=== PATIENT | male | born 1930 | race Caucasian/White ===

== ENCOUNTER 2017-11-12 17:15 | Inpatient (IN) | payer MEDICARE, OTHER, MEDICAID ==
[2017-11-12] MEDS ORDERED: Pantoprazole 40 MG Vial ONE ×2 (17:19→17:20)
[2017-11-12] MEDS ORDERED: Ondansetron 4 MG/2 ML SDV ONE ×2 (17:20→17:30)
[2017-11-12] MEDS ORDERED: LORazepam 2 MG/ML SDV ONE ×2 (17:20→17:29)
[2017-11-12] MEDS ORDERED: Morphine 2 MG/ML Syringe ONE ×2 (17:20→17:39)
[2017-11-12] MEDS ORDERED: Sodium Chloride 0.9% 1,000 ML IV SCH (17:21)
[2017-11-12] MEDS ORDERED: Sodium Chloride 0.9% 1,000 ML IV ONE (17:21)
[2017-11-12] MEDS ORDERED: Labetalol 20 MG/4 ML Syringe IVPUSH ONE (17:25)
[2017-11-12 17:47] LABS: CHLORIDE,CL 99 mmol/L (98-107); SODIUM,NA 136 mmol/L (136-145)
--- NOTE | 2017-11-12 18:28 | EDM.PDOC ---
ED HPI GENERAL MEDICAL PROBLEM - General Chief Complaint: Respiratory Problem Stated Complaint: hypoxia, unresponsive- resp distress Time Seen by Provider: 11/12/17 17:22 Source of Information: Reports: Other ([facility] staff) History Limitations: Reports: Altered Mental Status (dementia) - History of Present Illness INITIAL COMMENTS - FREE TEXT/NARRATIVE: Patient brought here by EMS from [facility] after having sudden onset respiratory distress and low grade temp. Staff there said that only an hour before patient appeared to be normal self. Reported observations from staff included tachycardia, tachypnea, wheezing, shaking, cyanotic lips. Sats in 80s. Did drop at one point to 67%. Os 4LNC started. Later was on non-rebreather mask during transport. Blood sugar 276 on site. History of dementia, anemia, GERD, DM, CVA, prostate cancer, osteoarthritis, depression, arthritis, hypothyroidism - Related Data Allergies Allergy/AdvReac Type Severity Reaction Status Date / Time atorvastatin calcium Allergy Unknown Verified 03/24/14 08:33 [From Lipitor] enalapril Allergy Unknown Verified 03/24/14 08:33 Penicillins Allergy Unknown Verified 03/24/14 08:33 simvastatin [From Zocor] Allergy Unknown Verified 03/24/14 08:33 Home Meds: Home Meds Acetaminophen [Tylenol] 325 mg PO BID PRN 03/24/14 [History] Calcium Polycarbophil [Fibercon] 625 mg PO DAILY 03/24/14 [History] Citalopram Hydrobromide [Celexa] 10 mg PO DAILY 03/24/14 [History] Donepezil HCl [Aricept] 10 mg PO DAILY 03/24/14 [History] Insulin Glarg,Human.Rec.Analog [LantUS] 14 unit SUBCUT BEDTIME 03/24/14 [History ] Levothyroxine 25 mcg PO DAILY@1900 03/24/14 [History] Omeprazole [Prilosec] 20 mg PO DAILY 03/24/14 [History] glipiZIDE [Glipizide ER] 10 mg PO BID 03/24/14 [History] metFORMIN [metFORMIN XR] 500 mg PO BEDTIME 03/24/14 [History] Aspirin [Ecotrin] 325 mg PO DAILY 11/12/17 [History] Camphor/Menthol [Sarna Lotion] 1 applic TP QID PRN 11/12/17 [History] Insulin Aspart [Novolog] 12 unit SQ 08,18 11/12/17 [History] Insulin Aspart [Novolog] 16 unit SQ 12 11/12/17 [History] Memantine HCl [Namenda Xr] 14 mg PO BEDTIME 11/12/17 [History] Psyllium Husk [Metamucil] 0.4 gm PO DAILY 11/12/17 [History] Past Medical History Gastrointestinal History: Reports: GERD Genitourinary History: Reports: Prostate Disorder Musculoskeletal History: Reports: Osteoarthritis Neurological History: Reports: CVA Psychiatric History: Reports: Dementia, Depression Endocrine/Metabolic History: Reports: Diabetes, Type II, Hypothyroidism Hematologic History: Reports: Anemia Oncologic (Cancer) History: Reports: Prostate Social & Family History - Family History Family Medical History: Unobtainable - Living Situation & Occupation Living situation: Reports: , with Family, Extended Care Facility Occupation: Retired ED ROS GENERAL - Review of Systems Review Of Systems: Unable To Obtain ED EXAM, GENERAL - Physical Exam Exam: See Below Exam Limited By: Respiratory Distress General Appearance: Lethargic, Severe Distress, Obese Eye Exam: Bilateral Eye: EOMI, PERRL Ears: Normal External Exam, Normal Canal, Hearing Grossly Normal, Normal TMs Nose: No: Nasal Deformity, Nasal Swelling, Nasal Drainage Throat/Mouth: Normal Voice, Other (very poor dentition noted. ) Head: Atraumatic, Normocephalic Neck: Supple, Non-Tender, Full Range of Motion Respiratory/Chest: Respiratory Distress, Decreased Breath Sounds, Wheezing (all villeda), Accessory Muscle Use. No: Stridor, Retractions Cardiovascular: No Murmur, Tachycardia Peripheral Pulses: 2+: Radial (L), Radial (R), Dorsalis Pedis (L), Dorsalis Pedis (R) GI/Abdominal: Non-Tender, Abnormal Bowel Sounds (decreased), Other (very rounded , obese abdomen). No: Guarding, Rebound, Tender (Male) Exam: Rash (fungal like rash noted in groin region). No: Penile Lesions, Suprapubic Fullness Rectal (Males) Exam: Deferred Back Exam: Normal Inspection Extremities: Pedal Edema (mild, bilateral). No: Joint Swelling, Maggie's Sign, Leg Pain, Mottled, Pallor, Redness Neurological: Other (spontaneously opened eyes, opened eyes to voices. Appears to have equal tone/strength. Could not test reflexes as patient would not relax. Moves all 4 limbs) Psychiatric: Normal Affect Skin Exam: Other (groin rash noted. Increased overall warmth/fever. ). No: Decubitus, Diaphoretic Course - Orders/Labs/Meds Orders: Active Orders 24 hr Category Date Time Status Insert Tellez Catheter [Insert Urinary Catheter] [OM.PC] Care 11/12/17 18:15 Ordered Q24H Urinary Catheter Assessment [RC] ASDIRECTED Care 11/12/17 18:09 Active Chest 1V Frontal [CR] Stat Exams 11/12/17 17:25 Ordered CULTURE BLOOD [BC] Stat Lab 11/12/17 17:25 Ordered CULTURE BLOOD [BC] Stat Lab 11/12/17 17:25 Ordered UA W/MICROSCOPIC [URIN] Stat Lab 11/12/17 18:10 Ordered Sodium Chloride 0.9% [Saline Flush] Med 11/12/17 17:22 Ordered 10 ml FLUSH ASDIRECTED PRN Blood Culture x2 Reflex Set [OM.PC] Stat Oth 11/12/17 17:25 Ordered Saline Lock Insert [OM.PC] Stat Oth 11/12/17 17:22 Ordered Medication Orders Sodium Chloride (Saline Flush) 10 ml FLUSH ASDIRECTED PRN PRN Reason: Keep Vein Open Labs: Laboratory Tests 11/12/17 11/12/17 11/12/17 Range/Units 17:15 17:15 17:15 WBC 20.8 H (4.0-10.2) K/uL RBC 3.61 L (4.33-5.41) M/uL Hgb 12.1 L (13.1-16.8) g/dL Hct 36.8 L (39.0-49.0) % MCV 101.9 H D (84.0-98.0) fL MCH 33.5 H (28.2-33.3) pg MCHC 32.9 (31.7-36.0) g/dL RDW 16.4 H (11.2-14.1) % Plt Count 517 H D (150-350) K/uL Neut % (Auto) 86.5 H (45.0-80.0) % Lymph % (Auto) 11.0 (10.0-50.0) % [place] % (Auto) 1.2 L (2.0-14.0) % Eos % (Auto) 0.8 (0.0-5.0) % Baso % (Auto) 0.5 (0.0-2.0) % Neut # (Auto) 18.03 H (1.40-7.00) K/uL Lymph # (Auto) 2.28 (0.50-3.50) K/uL [place] # (Auto) 0.24 (0.00-1.00) K/uL Eos # (Auto) 0.16 (0.00-0.50) K/uL Baso # (Auto) 0.10 (0.00-0.20) K/uL Sodium 136 (136-145) mmol/L Potassium 5.2 H (3.5-5.1) mmol/L Chloride 99 (98-107) mmol/L Carbon Dioxide 22.0 (21.0-32.0) mmol/L BUN 31 H (7-18) mg/dL Creatinine 1.38 H (0.51-1.17) mg/dL Est Cr Clr Drug Dosing TNP Estimated GFR (MDRD) 49 mL/min Glucose 228 H (74-106) mg/dL Lactic Acid 8.7 H (0.4-2.0) mmol/L Calcium 9.2 (8.5-10.1) mg/dL Total Bilirubin 0.5 (0.2-1.0) mg/dL AST 19 (15-37) U/L ALT 21 (12-78) U/L Alkaline Phosphatase 93 (46-116) IU/L Creatine Kinase 56 (26-308) U/L Creatine Kinase Index 3.8 H (0.0-2.5) % CK-MB (CK-2) 2.10 (0.00-3.60) ng/mL Troponin I 0.000 (0.000-0.056) ng/mL Total Protein 7.8 (6.4-8.2) g/dL Albumin 4.0 (3.4-5.0) g/dL Specimen Type Urine Color Urine Appearance Urine pH (5.0-9.0) Ur Specific [place] (1.005-1.030) Urine Protein (NEGATIVE) mg/dL Urine Glucose (UA) (NEGATIVE) mg/dL Urine Ketones (NEGATIVE) mg/dL Urine Occult Blood (NEGATIVE) Urine Nitrite (NEGATIVE) Urine Bilirubin (NEGATIVE) Urine Urobilinogen (0.2-1.0) E.U./dL Ur Leukocyte Esterase (NEGATIVE) Urine RBC /HPF Urine WBC /HPF Ur Epithelial Cells /LPF Amorphous Sediment (0/HPF) /HPF Urine Bacteria (NONE TO FEW) /HPF 11/12/17 Range/Units 18:10 WBC (4.0-10.2) K/uL RBC (4.33-5.41) M/uL Hgb (13.1-16.8) g/dL Hct (39.0-49.0) % MCV (84.0-98.0) fL MCH (28.2-33.3) pg MCHC (31.7-36.0) g/dL RDW (11.2-14.1) % Plt Count (150-350) K/uL Neut % (Auto) (45.0-80.0) % Lymph % (Auto) (10.0-50.0) % [place] % (Auto) (2.0-14.0) % Eos % (Auto) (0.0-5.0) % Baso % (Auto) (0.0-2.0) % Neut # (Auto) (1.40-7.00) K/uL Lymph # (Auto) (0.50-3.50) K/uL [place] # (Auto) (0.00-1.00) K/uL Eos # (Auto) (0.00-0.50) K/uL Baso # (Auto) (0.00-0.20) K/uL Sodium (136-145) mmol/L Potassium (3.5-5.1) mmol/L Chloride (98-107) mmol/L Carbon Dioxide (21.0-32.0) mmol/L BUN (7-18) mg/dL Creatinine (0.51-1.17) mg/dL Est Cr Clr Drug Dosing Estimated GFR (MDRD) mL/min Glucose (74-106) mg/dL Lactic Acid (0.4-2.0) mmol/L Calcium (8.5-10.1) mg/dL Total Bilirubin (0.2-1.0) mg/dL AST (15-37) U/L ALT (12-78) U/L Alkaline Phosphatase (46-116) IU/L Creatine Kinase (26-308) U/L Creatine Kinase Index (0.0-2.5) % CK-MB (CK-2) (0.00-3.60) ng/mL Troponin I (0.000-0.056) ng/mL Total Protein (6.4-8.2) g/dL Albumin (3.4-5.0) g/dL Specimen Type Urinfol Urine Color Yellow Urine Appearance Slightly cloudy Urine pH 5.5 (5.0-9.0) Ur Specific [place] 1.015 (1.005-1.030) Urine Protein Negative (NEGATIVE) mg/dL Urine Glucose (UA) Negative (NEGATIVE) mg/dL Urine Ketones Negative (NEGATIVE) mg/dL Urine Occult Blood Moderate H (NEGATIVE) Urine Nitrite Negative (NEGATIVE) Urine Bilirubin Negative (NEGATIVE) Urine Urobilinogen 0.2 (0.2-1.0) E.U./dL Ur Leukocyte Esterase Small H (NEGATIVE) Urine RBC 5-10 H /HPF Urine WBC 0-5 /HPF Ur Epithelial Cells Few /LPF Amorphous Sediment Few (0/HPF) /HPF Urine Bacteria Few (NONE TO FEW) /HPF Meds: Medications Generic Name Dose Route Start Last Admin Trade Name Freq PRN Reason Stop Dose Admin Sodium Chloride 10 ml 11/12/17 17:22 Saline Flush FLUSH ASDIRECTED PRN Keep Vein Open Discontinued Medications Generic Name Dose Route Start Last Admin Trade Name Freq PRN Reason Stop Dose Admin Labetalol HCl 10 mg 11/12/17 17:25 Normodyne IVPUSH 11/12/17 17:26 ONETIME ONE Protocol Lorazepam Confirm 11/12/17 17:29 Ativan Administered 11/12/17 17:30 Dose 2 mg .ROUTE .STK-MED ONE Morphine Sulfate Confirm 11/12/17 17:39 Morphine Administered 11/12/17 17:40 Dose 2 mg .ROUTE .STK-MED ONE Ondansetron HCl Confirm 11/12/17 17:30 Zofran Administered 11/12/17 17:31 Dose 4 mg .ROUTE .STK-MED ONE Pantoprazole Sodium Confirm 11/12/17 17:19 Protonix Iv Administered 11/12/17 17:20 Dose 40 mg .ROUTE .STK-MED ONE - Radiology Interpretation Free Text/Narrative:: Portable chest film: limited quality due to being portable as well as patient not able to take deep breath and large body habitus. Appears to have increased heart size, suspect infiltrate lower right lung. - Re-Assessments/Exams Free Text/Narrative Re-Assessment/Exam: 11/12/17 18:53 Patient noted to have coffee ground emesis when he arrived to the ER. + for occult blood. IV access obtained. DuoNeb ordered. IV Protonix given as well as Zofran. Additionally, Ativan and MS given to help with agitation and SOB. Significant improvement noted with O2 sats, respiratory rate, heart rate, BP noted. Patient appeared much more comfortable. Denied having any pain when asked. Call placed to patient's daughter who confirmed that patient is DNR. She wishes to have comfort care status for patient but is ok with us giving IV fluids as well as antibiotics. She does not wish to have him transferred to [facility]. Labs showed numerous abnormalities, including elevated white count and platelets. Mild K increase 5.2 Elevated Lactic Acid at 8.7 Bun 31, Cr 1.38 Glucose 278 Plan at this time is to continue supportive neb treatments and supplemental O2. Will continue to give some fluids but try to avoid fluid overload given patient's age (no history of CHF per [facility] record). Fluids will likely improve potassium level. Will also cover for potential aspiration pneumonia given the sudden respiratory changes that were noted at the time of the emesis/GI bleed. 11/12/17 19:07 Departure - Departure Time of Disposition: 18:45 Disposition: Admitted As Inpatient 65 Condition: Fair Clinical Impression: GI bleed - Discharge Information - Problem List & Annotations (1) GI bleed SNOMED Code(s): 52482314 Code(s): K92.2 - GASTROINTESTINAL HEMORRHAGE, UNSPECIFIED Status: Acute Priority: High Current Visit: Yes Qualifiers: GI bleed type/associated pathology: unspecified gastrointestinal hemorrhage type Qualified Code(s): K92.2 - Gastrointestinal hemorrhage, unspecified (2) Aspiration of blood SNOMED Code(s): 86009232 Code(s): R09.89 - OTH SYMPTOMS AND SIGNS INVOLVING THE CIRC AND RESP SYSTEMS Status: Acute Priority: High Current Visit: Yes Onset Date: 11/12/17 (3) Hyperkalemia SNOMED Code(s): 90316840 Code(s): E87.5 - HYPERKALEMIA Status: Acute Priority: Medium Current Visit: Yes (4) Elevated lactic acid level SNOMED Code(s): 2996135 Code(s): R79.89 - OTHER SPECIFIED ABNORMAL FINDINGS OF BLOOD CHEMISTRY Status: Acute Priority: High Current Visit: Yes (5) GERD (gastroesophageal reflux disease) SNOMED Code(s): 662158223 Code(s): K21.9 - GASTRO-ESOPHAGEAL REFLUX DISEASE WITHOUT ESOPHAGITIS Status: Chronic Priority: High Current Visit: Yes Qualifiers: Esophagitis presence: esophagitis presence not specified Qualified Code(s) : K21.9 - Gastro-esophageal reflux disease without esophagitis (6) Diabetes SNOMED Code(s): 01860020 Code(s): E11.9 - TYPE 2 DIABETES MELLITUS WITHOUT COMPLICATIONS Status: Acute Priority: Low Current Visit: Yes Qualifiers: Diabetes mellitus type: type 2 Diabetes mellitus 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 insulin use: with halfway use Diabetes mellitus complication status: with unspecified complications Qualified Code(s): E11.8 - Type 2 diabetes mellitus with unspecified complications; Z79.4 - technician terminal and repeater (current) use of insulin (7) Dementia SNOMED Code(s): 25340042 Code(s): F03.90 - UNSPECIFIED DEMENTIA WITHOUT BEHAVIORAL DISTURBANCE Status: Chronic Priority: Low Current Visit: No (8) Need for comfort care SNOMED Code(s): 498486610 Code(s): RMP0857 - Status: Acute Priority: High Current Visit: Yes - Problem List Review Problem List Initiated/Reviewed/Updated: Yes - My Orders Last 24 Hours: My Active Orders 11/12/17 17:22 Sodium Chloride 0.9% [Saline Flush] 10 ml FLUSH ASDIRECTED PRN Saline Lock Insert [OM.PC] Stat 11/12/17 17:25 Chest 1V Frontal [CR] Stat CULTURE BLOOD [BC] Stat CULTURE BLOOD [BC] Stat Blood Culture x2 Reflex Set [OM.PC] Stat 11/12/17 18:09 Urinary Catheter Assessment [RC] ASDIRECTED 11/12/17 18:10 UA W/MICROSCOPIC [URIN] Stat 11/12/17 18:15 Insert Tellez Catheter [Insert Urinary Catheter] [OM.PC] Q24H - Assessment/Plan Last 24 Hours: My Active Orders 11/12/17 17:22 Sodium Chloride 0.9% [Saline Flush] 10 ml FLUSH ASDIRECTED PRN Saline Lock Insert [OM.PC] Stat 11/12/17 17:25 Chest 1V Frontal [CR] Stat CULTURE BLOOD [BC] Stat CULTURE BLOOD [BC] Stat Blood Culture x2 Reflex Set [OM.PC] Stat 11/12/17 18:09 Urinary Catheter Assessment [RC] ASDIRECTED 11/12/17 18:10 UA W/MICROSCOPIC [URIN] Stat 11/12/17 18:15 Insert Tellez Catheter [Insert Urinary Catheter] [OM.PC] Q24H Assessment:: as above Plan: as above
[2017-11-12] MEDS ORDERED: LORazepam 2 MG/ML SDV IV PRN (19:17)
[2017-11-12] MEDS ORDERED: Ondansetron 4 MG/2 ML SDV IVPUSH PRN (19:17)
[2017-11-12] MEDS ORDERED: Lactated Ringers 1,000 ML IV SCH (19:30)
[2017-11-12] MEDS ORDERED: Clotrimazole 1% Crm 30 GM Tube TOP SCH (19:45)
[2017-11-12] MEDS ORDERED: MEMANTINE HCL 14 MG PO SCH (20:00)
[2017-11-12] MEDS ORDERED: Memantine 10 MG Tab PO SCH (20:00)
[2017-11-12] MEDS: Clindamycin Phosphate 600 MG in Sodium Chloride 0.9% 100 ML IV SCH (20:38)
[2017-11-12] MEDS: Sodium Chloride 0.9% 10 ML Syringe FLUSH PRN ×3 (20:39→20:56)
[2017-11-12] MEDS: methylPREDNISolone Sodium Succinate 125 MG/2 ML SDV IVPUSH SCH (20:45)
[2017-11-12] MEDS: Pantoprazole 40 MG Vial IVPUSH SCH (20:45)
[2017-11-12] MEDS: Albuterol/Ipratropium 3.0-0.5 MG/3 ML Neb Soln NEB PRN ×2 (20:54→23:59)
[2017-11-12] MEDS: Donepezil 10 MG Tab PO SCH (20:55)
[2017-11-12] MEDS: Levothyroxine 50 MCG Tab PO SCH (20:55)
[2017-11-12] MEDS: Memantine 10 MG Tab PO SCH (20:59)
[2017-11-12] MEDS: Sodium Chloride 0.9% 1,000 ML IV SCH (23:57)
[2017-11-13] MEDS: Sodium Chloride 0.9% 10 ML Syringe FLUSH PRN ×2 (01:34→07:51)
[2017-11-13] MEDS: Morphine 2 MG/ML Syringe IVPUSH PRN ×2 (01:34→07:42)
[2017-11-13] MEDS ORDERED: Albuterol/Ipratropium 3.0-0.5 MG/3 ML Neb Soln NEB PRN (01:56)
[2017-11-13] MEDS: Albuterol/Ipratropium 3.0-0.5 MG/3 ML Neb Soln NEB SCH ×5 (03:35→19:37)
[2017-11-13] MEDS: Clindamycin Phosphate 600 MG in Sodium Chloride 0.9% 100 ML IV SCH ×3 (03:35→19:41)
[2017-11-13 07:24] LABS: CHLORIDE,CL 102 mmol/L (98-107); SODIUM,NA 134 mmol/L (136-145)
[2017-11-13] MEDS ORDERED: Insulin Regular, Human 100 Units/ML 3 ML Vial SUBCUT ONE ×2 (07:39→11:16)
[2017-11-13] MEDS: Pantoprazole 40 MG Vial IVPUSH SCH (07:41)
[2017-11-13] MEDS: Clotrimazole 1% Crm 30 GM Tube TOP SCH ×2 (07:41→19:41)
[2017-11-13] MEDS ORDERED: Sodium Polystyrene Sulfonate 15 GM/60 ML Susp 60 ML Bot PO ONE (07:49)
[2017-11-13] MEDS: methylPREDNISolone Sodium Succinate 125 MG/2 ML SDV IVPUSH SCH (07:50)
[2017-11-13] MEDS: Citalopram 20 MG Tab PO SCH (07:50)
[2017-11-13] MEDS: Memantine 10 MG Tab PO SCH ×2 (07:50→19:39)
[2017-11-13] MEDS: Insulin Regular, Human 100 Units/ML 3 ML Vial SUBCUT SCH ×2 (07:54→18:49)
[2017-11-13] MEDS ORDERED: Sodium Chloride 1 GM Tab PO SCH (08:00)
--- NOTE | 2017-11-13 09:05 | PCM.SN ---
- Free Text/Narrative Note: Vital signs have been stable. Patient refusing to take PO medications this morning. Elevated blood sugar at 495, suspect due to Solumedrol dose received last night. Potassium has increased to 6.4. Patient was agreeable to taking Kayexalate. WBC has increased to 52.2 Relatively small urine output. Continues to have increased respiratory effort. Lungs continue to have crackles bilaterally posteriorly. Anterior breath sounds diminished. Call placed to patient's daughter Evelyn and she was updated on patient's condition. She is going to see if she can arrange to fly up to [place] possibly tomorrow. She continues to want comfort care for her father.
[2017-11-13] MEDS ORDERED: Morphine Oral Concentrate 20 MG/ML 30 ML Bottle PO PRN (10:00)
[2017-11-13] MEDS: Sodium Chloride 0.9% 1,000 ML IV SCH (10:40)
[2017-11-13] MEDS ORDERED: Furosemide 20 MG/2 ML VIAL IVPUSH ONE (14:32)
[2017-11-13] MEDS: Sodium Polystyrene Sulfonate 15 GM/60 ML Susp 60 ML Bot PO SCH (15:06)
[2017-11-13] MEDS ORDERED: Insulin Aspart 100 Units/ML 3 ML Pen SUBCUT ONE (18:45)
--- NOTE | 2017-11-13 19:12 | PCM.PN ---
- General Info Date of Service: 11/13/17 Subjective Update: He says he is okay. He says he went in the ditch. Functional Status: Reports: Tolerating Diet - Review of Systems General: Reports: Weakness HEENT: Reports: No Symptoms Pulmonary: Reports: Shortness of Breath (improving) Cardiovascular: Reports: No Symptoms Gastrointestinal: Reports: Decreased Appetite Genitourinary: Reports: No Symptoms Musculoskeletal: Reports: No Symptoms Skin: Reports: No Symptoms Neurological: Reports: Confusion, Weakness Psychiatric: Reports: Confusion - Patient Data Vitals - Most Recent: Last Vital Signs Temp 97.5 F 11/13/17 15:23 Pulse 95 11/13/17 15:23 Resp 20 11/13/17 15:23 BP 125/54 L 11/13/17 15:23 Pulse Ox 100 11/13/17 15:23 Weight - Most Recent: 199 lb 15.983 oz I&O - Last 24 Hours: Intake & Output 11/13/17 11/13/17 11/13/17 06:59 14:59 22:59 Intake Total 2700 400 Output Total 275 725 Balance 2425 -725 400 Lab Results Last 24 Hours: Laboratory Results - last 24 hr 11/12/17 11/13/17 11/13/17 Range/Units 21:05 06:35 06:35 WBC 52.2 H* (4.0-10.2) K/uL RBC 2.95 L (4.33-5.41) M/uL Hgb 10.0 L D (13.1-16.8) g/dL Hct 31.1 L (39.0-49.0) % MCV 105.4 H D (84.0-98.0) fL MCH 33.9 H (28.2-33.3) pg MCHC 32.2 (31.7-36.0) g/dL RDW 16.5 H (11.2-14.1) % Plt Count 354 H D (150-350) K/uL Neut % (Auto) Hospice Entrance Attendant Lymph % (Auto) Hospice Entrance Attendant [place] % (Auto) Hospice Entrance Attendant Eos % (Auto) Hospice Entrance Attendant Baso % (Auto) Hospice Entrance Attendant Neut # (Auto) Hospice Entrance Attendant Lymph # (Auto) Hospice Entrance Attendant [place] # (Auto) Hospice Entrance Attendant Eos # (Auto) Hospice Entrance Attendant Baso # (Auto) Hospice Entrance Attendant Add Manual Diff Yes Neutrophils % (Manual) 58.4 Band Neutrophils % 37.6 Lymphocytes % (Manual) 2.0 Atypical Lymphs % 0 Immat Monocytes % (Man) 0 Monocytes % (Manual) 1.0 Eosinophils % (Manual) 0 Basophils % (Manual) 0 Metamyelocytes % 0 Myelocytes % 0 Promyelocytes % 0 Blast Cells % 0 Plasma Cell % (Manual) 0 Immature Gran # 0 Absolute Neutrophils 0 Absolute Seg Neuts 0 Band Neutrophils # 0 Lymphocytes # (Manual) 0 Monocytes # (Manual) 0 Eosinophils # (Manual) 0 Basophils # (Manual) 0 Absolute Metamyelocyte 0 Absolute Myelocytes 0 Absolute Promyelocytes 0 Absolute Plasma Cells 0 Nucleated RBCs 0 Absolute Blast Cells 0 Sodium 134 L (136-145) mmol/L Potassium 6.4 H* (3.5-5.1) mmol/L Chloride 102 (98-107) mmol/L Carbon Dioxide 18.9 L (21.0-32.0) mmol/L BUN 38 H (7-18) mg/dL Creatinine 1.59 H (0.51-1.17) mg/dL Est Cr Clr Drug Dosing TNP Estimated GFR (MDRD) 41 mL/min Glucose 495 H* (74-106) mg/dL POC Glucose 187 H (65-110) mg/dl Calcium 8.2 L (8.5-10.1) mg/dL 11/13/17 11/13/17 11/13/17 Range/Units 07:22 11:01 17:06 WBC (4.0-10.2) K/uL RBC (4.33-5.41) M/uL Hgb (13.1-16.8) g/dL Hct (39.0-49.0) % MCV (84.0-98.0) fL MCH (28.2-33.3) pg MCHC (31.7-36.0) g/dL RDW (11.2-14.1) % Plt Count (150-350) K/uL Neut % (Auto) Lymph % (Auto) [place] % (Auto) Eos % (Auto) Baso % (Auto) Neut # (Auto) Lymph # (Auto) [place] # (Auto) Eos # (Auto) Baso # (Auto) Add Manual Diff Neutrophils % (Manual) Band Neutrophils % Lymphocytes % (Manual) Atypical Lymphs % Immat Monocytes % (Man) Monocytes % (Manual) Eosinophils % (Manual) Basophils % (Manual) Metamyelocytes % Myelocytes % Promyelocytes % Blast Cells % Plasma Cell % (Manual) Immature Gran # Absolute Neutrophils Absolute Seg Neuts Band Neutrophils # Lymphocytes # (Manual) Monocytes # (Manual) Eosinophils # (Manual) Basophils # (Manual) Absolute Metamyelocyte Absolute Myelocytes Absolute Promyelocytes Absolute Plasma Cells Nucleated RBCs Absolute Blast Cells Sodium (136-145) mmol/L Potassium (3.5-5.1) mmol/L Chloride (98-107) mmol/L Carbon Dioxide (21.0-32.0) mmol/L BUN (7-18) mg/dL Creatinine (0.51-1.17) mg/dL Est Cr Clr Drug Dosing Estimated GFR (MDRD) mL/min Glucose (74-106) mg/dL POC Glucose 456 H* 448 H* 423 H* (65-110) mg/dl Calcium (8.5-10.1) mg/dL Jaya Results Last 24 Hours: Microbiology 11/12/17 17:35 Aerobic Blood Culture - Preliminary Blood - Venous - Lab Draw Anaerobic Blood Culture - Preliminary NO GROWTH AFTER 1 DAY 11/12/17 17:15 Aerobic Blood Culture - Preliminary Blood - Venous NO GROWTH AFTER 1 DAY Anaerobic Blood Culture - Preliminary NO GROWTH AFTER 1 DAY 11/12/17 17:15 Gastric pH - Final Gastric Aspirate 11/12/17 17:15 Gastric Occult Blood - Final Gastric Aspirate 11/12/17 17:20 Stool Occult Blood (JAYA) - Final Stool / Feces NEGATIVE OCCULT BLOOD Med Orders - Current: Current Medications Albuterol/Ipratropium (Duoneb 3.0-0.5 Mg/3 Ml) 3 ml NEB Q2H PRN PRN Reason: Dyspnea Albuterol/Ipratropium (Duoneb 3.0-0.5 Mg/3 Ml) 3 ml NEB QIDRT [facility] Citalopram Hydrobromide (Celexa) 5 mg PO DAILY [facility] Last Admin: 11/13/17 07:50 Dose: Not Given Clotrimazole (Lotrimin Af 1% Crm) 0 gm TOP BID@0800,1999 [facility] Last Admin: 11/13/17 07:41 Dose: 1 applic Donepezil HCl (Aricept) 10 mg PO BEDTIME [facility] Last Admin: 11/12/17 20:55 Dose: 10 mg Clindamycin Phosphate 600 mg/ (Sodium Chloride) 104 mls @ 200 mls/hr IV Q8H [facility] Last Admin: 11/13/17 11:27 Dose: 200 mls/hr Sodium Chloride (Normal Saline) 1,000 mls @ 100 mls/hr IV ASDIRECTED [facility] Last Admin: 11/13/17 10:40 Dose: 100 mls/hr Insulin Detemir (Levemir) 33 unit SUBCUT BEDTIME [facility] Levothyroxine Sodium (Synthroid) 50 mcg PO BEDTIME [facility] Last Admin: 11/12/17 20:55 Dose: 50 mcg Lorazepam (Ativan) 1 mg IV Q6H PRN PRN Reason: Agitation Memantine (Namenda) 5 mg PO [facility] Last Admin: 11/13/17 07:50 Dose: Not Given Morphine Sulfate (Morphine 20 Mg/Ml Soln) 2.5 mg PO Q2H PRN PRN Reason: pain, shortness of breath Ondansetron HCl (Zofran) 4 mg IVPUSH Q6H PRN PRN Reason: Nausea/Vomiting Pantoprazole Sodium (Protonix Iv) 40 mg IVPUSH DAILY [facility] Sodium Chloride (Saline Flush) 10 ml FLUSH ASDIRECTED PRN PRN Reason: Keep Vein Open Last Admin: 11/13/17 07:51 Dose: 10 ml Sodium Polystyrene Sulfonate (Kayexalate) 15 gm PO Q8H [facility] Last Admin: 11/13/17 15:06 Dose: 15 gm Discontinued Medications Albuterol/Ipratropium (Duoneb 3.0-0.5 Mg/3 Ml) 3 ml NEB Q4H PRN PRN Reason: Dyspnea Last Admin: 11/12/17 23:59 Dose: 3 ml Albuterol/Ipratropium (Duoneb 3.0-0.5 Mg/3 Ml) 3 ml NEB Q4HRRT [facility] Last Admin: 11/13/17 15:06 Dose: 3 ml Clotrimazole (Lotrimin Af 1% Crm) 0 gm TOP BID [facility] Last Admin: 11/12/17 20:54 Dose: 1 applic Furosemide (Lasix) 20 mg IVPUSH ONETIME ONE Stop: 11/13/17 14:33 Last Admin: 11/13/17 15:06 Dose: 20 mg Sodium Chloride (Normal Saline) 1,000 mls @ 500 mls/hr IV ASDIRECTED [facility] Last Admin: 11/12/17 17:25 Dose: 500 mls/hr Lactated Ringer's (Ringers, Lactated) 1,000 mls @ 250 mls/hr IV ASDIRECTED [facility] Last Admin: 11/12/17 19:45 Dose: 250 mls/hr Insulin Aspart (Novolog) 16 unit SUBCUT ONETIME ONE Stop: 11/13/17 18:46 Last Admin: 11/13/17 18:44 Dose: 16 units Insulin Human Regular (Humulin R) 0 unit SUBCUT BIDAC [facility]; Protocol Last Admin: 11/13/17 18:49 Dose: Not Given Insulin Human Regular (Humulin R) 12 unit SUBCUT ONETIME ONE Stop: 11/13/17 07:40 Last Admin: 11/13/17 07:51 Dose: 12 units Insulin Human Regular (Humulin R) 8 unit SUBCUT ONETIME ONE Stop: 11/13/17 11:17 Last Admin: 11/13/17 11:27 Dose: 8 units Labetalol HCl (Normodyne) 10 mg IVPUSH ONETIME ONE; Protocol Stop: 11/12/17 17:26 Last Admin: 11/12/17 18:53 Dose: Not Given Lorazepam (Ativan) Confirm Administered Dose 2 mg .ROUTE .STK-MED ONE Stop: 11/12/17 17:30 Last Admin: 11/12/17 18:52 Dose: Not Given Memantine (Namenda) 10 mg PO BEDTIME [facility] Last Admin: 11/12/17 21:06 Dose: Not Given Methylprednisolone Sodium Succinate (Solu-Medrol) 125 mg IVPUSH DAILY [facility] Last Admin: 11/13/17 07:50 Dose: Not Given Morphine Sulfate (Morphine) Confirm Administered Dose 2 mg .ROUTE .STK-MED ONE Stop: 11/12/17 17:40 Last Admin: 11/12/17 18:52 Dose: Not Given Morphine Sulfate (Morphine) 2 mg IVPUSH Q2H PRN PRN Reason: Pain (severe 7-10) Last Admin: 11/13/17 07:42 Dose: 2 mg Non-Formulary Medication (Memantine Hcl) 14 mg PO BEDTIME [facility] Last Admin: 11/12/17 20:16 Dose: Not Given Ondansetron HCl (Zofran) Confirm Administered Dose 4 mg .ROUTE .STK-MED ONE Stop: 11/12/17 17:31 Last Admin: 11/12/17 18:53 Dose: Not Given Pantoprazole Sodium (Protonix Iv) Confirm Administered Dose 40 mg .ROUTE .STK -MED ONE Stop: 11/12/17 17:20 Last Admin: 11/12/17 18:53 Dose: Not Given Pantoprazole Sodium (Protonix Iv) 40 mg IVPUSH Q12H [facility] Last Admin: 11/13/17 07:41 Dose: 40 mg Sodium Chloride (Sodium Chloride) 1 gm PO DAILY [facility] Last Admin: 11/13/17 07:50 Dose: Not Given Sodium Polystyrene Sulfonate (Kayexalate) 15 gm PO ONETIME ONE Stop: 11/13/17 07:50 Last Admin: 11/13/17 08:45 Dose: 15 gm - Exam Quality Assessment: Supplemental Oxygen, Urine Catheter General: Alert, Cooperative, No Acute Distress HEENT: Mucous Membr. Moist/[place] Neck: Trachea Midline, No JVD Lungs: Normal Respiratory Effort, Decreased Breath Sounds Cardiovascular: Regular Rate, Regular Rhythm GI/Abdominal Exam: Soft, Non-Tender, No Distention (Male) Exam: Deferred Back Exam: Normal Inspection Extremities: Normal Inspection, Non-Tender, No Pedal Edema Skin: Warm, Dry, Intact Neurological: No New Focal Deficit Psy/Mental Status: Alert, Normal Affect, Normal Mood - Problem List & Annotations (1) Sepsis SNOMED Code(s): 76193692 Code(s): A41.9 - SEPSIS, UNSPECIFIED ORGANISM Status: Acute Priority: High Current Visit: Yes Qualifiers: Sepsis type: sepsis due to unspecified organism Qualified Code(s): A41.9 - Sepsis, unspecified organism (2) Diabetes SNOMED Code(s): 78596281 Code(s): E11.9 - TYPE 2 DIABETES MELLITUS WITHOUT COMPLICATIONS Status: Acute Priority: Low Current Visit: Yes Qualifiers: Diabetes mellitus type: type 2 Diabetes mellitus termite control technician insulin use: with termite control technician use Diabetes mellitus complication status: with unspecified complications Qualified Code(s): E11.8 - Type 2 diabetes mellitus with unspecified complications; Z79.4 - keno terminal operator (current) use of insulin (3) Hyperkalemia SNOMED Code(s): 48993368 Code(s): E87.5 - HYPERKALEMIA Status: Acute Priority: Medium Current Visit: Yes (4) Need for comfort care SNOMED Code(s): 532403415 Code(s): RYA4622 - Status: Acute Priority: High Current Visit: Yes (5) GERD (gastroesophageal reflux disease) SNOMED Code(s): 764570393 Code(s): K21.9 - GASTRO-ESOPHAGEAL REFLUX DISEASE WITHOUT ESOPHAGITIS Status: Chronic Priority: High Current Visit: Yes Qualifiers: Esophagitis presence: esophagitis presence not specified Qualified Code(s) : K21.9 - Gastro-esophageal reflux disease without esophagitis (6) COPD, Mild chronic obstructive pulmonary disease SNOMED Code(s): 122843558 Code(s): J44.9 - CHRONIC OBSTRUCTIVE PULMONARY DISEASE, UNSPECIFIED Status : Acute Priority: Medium Current Visit: No Annotation/Comment:: Not previously diagnosed with no current medical therapy. COPD by chest x-ray with previous distant tobacco use. Observe for now with respiratory therapy consultation as needed (7) CVA, Cerebrovascular accident SNOMED Code(s): 029345773 Code(s): I63.9 - CEREBRAL INFARCTION, UNSPECIFIED Status: Acute Priority : High Current Visit: No Onset Date: 03/24/14 Annotation/Comment:: Telephone consultation at 10:50 a.m. 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 Subsequent telephone consultation at 10:55 a.m. with the patient's daughter/POA, Evelyn West, who lives in [place]-telephone #[phone] and cell telephone number of [phone], with CODE STATUS discussed and verified and his daughter requesting further transfer and workup including probable MRI/MRA of the head and neck and possible subsequent heart catheterization. He is a limited code only with no prolonged intubation, etc.. Patient is neurologically stable. Delayed transport secondary to ambulance availability. Subsequent telephone consultation at 11:10 a.m. with Daniel Travis M.D., emergency room physician at [facility], who does accept the patient for further treatment and evaluation, with no further treatment recommendations given. (8) HTN, Benign hypertension SNOMED Code(s): 89898301 Code(s): I10 - ESSENTIAL (PRIMARY) HYPERTENSION Status: Acute Priority: High Current Visit: No Onset Date: 03/24/14 Annotation/Comment:: Probable hypertension based on today's exam with no previous therapy. Continue to observe his blood pressures closely (9) Heart disease SNOMED Code(s): 88113498 Code(s): I51.9 - HEART DISEASE, UNSPECIFIED Status: Acute Priority: High Current Visit: No Onset Date: 03/24/14 Annotation/Comment:: Incomplete and conflicting history with questionable previous chest pain and diaphoresis as below, and the patient deniing any chest pain. Note newly diagnosed complete right bundle branch block, mild change in troponin, and mildly elevated BNP/d-dimer. Chest pain not initially initiated secondary to possible CVA-type symptoms during the last couple of days with positive CT scan of the head as below, however no evidence of hemorrhagic bleeding. Aspirin and Plavix as per chest pain protocol were given after receival of CT scan results with additional IV Lopressor given. No chest pain or anginal complaints at this time. (10) Dementia SNOMED Code(s): 98505120 Code(s): F03.90 - UNSPECIFIED DEMENTIA WITHOUT BEHAVIORAL DISTURBANCE Status: Chronic Priority: Low Current Visit: No - Problem List Review Problem List Initiated/Reviewed/Updated: Yes - My Orders Last 24 Hours: My Active Orders 11/13/17 18:21 CRP [C-REACTIVE PROTEIN] [CHEM] Routine 11/13/17 20:00 Albuterol/Ipratropium [DuoNeb 3.0-0.5 MG/3 ML] 3 ml NEB QIDRT Insulin Detemir [Levemir] 33 unit SUBCUT BEDTIME 11/14/17 05:11 EKG Documentation Completion [RC] ASDIRECTED CBC WITH MANUAL DIFF [HEME] Routine CMP [COMPREHENSIVE METABOLIC PN,CMP] [CHEM] DAILY CRP [C-REACTIVE PROTEIN] [CHEM] DAILY LACTIC ACID [CHEM] Routine MAGNESIUM [CHEM] Routine EKG 12 Lead [EK] Routine 11/14/17 08:00 Pantoprazole [ProTONIX IV] 40 mg IVPUSH DAILY 11/15/17 05:11 CMP [COMPREHENSIVE METABOLIC PN,CMP] [CHEM] DAILY CRP [C-REACTIVE PROTEIN] [CHEM] DAILY 11/16/17 05:11 CMP [COMPREHENSIVE METABOLIC PN,CMP] [CHEM] DAILY CRP [C-REACTIVE PROTEIN] [CHEM] DAILY - Plan Plan:: 11/13/17 Abeba Pete MD Markedly improving throughout the day. Did eat supper (06/13). Not requiring O2. Talked to me. Preliminary blood cultures positive for gram+cocci in clusters. On clindamycin.
[2017-11-13] MEDS: Levothyroxine 50 MCG Tab PO SCH (19:36)
[2017-11-13] MEDS: Donepezil 10 MG Tab PO SCH (19:36)
[2017-11-13] MEDS ORDERED: Insulin Detemir 100 Units/ML 3 ML Pen SUBCUT SCH (20:00)
[2017-11-14] MEDS: Sodium Polystyrene Sulfonate 15 GM/60 ML Susp 60 ML Bot PO SCH ×2 (02:12→06:29)
[2017-11-14] MEDS: Clindamycin Phosphate 600 MG in Sodium Chloride 0.9% 100 ML IV SCH ×2 (03:14→11:22)
[2017-11-14] MEDS: Sodium Chloride 0.9% 10 ML Syringe FLUSH PRN (03:15)
[2017-11-14] MEDS: Albuterol/Ipratropium 3.0-0.5 MG/3 ML Neb Soln NEB SCH ×2 (07:21→11:22)
[2017-11-14] MEDS: Clotrimazole 1% Crm 30 GM Tube TOP SCH (07:21)
[2017-11-14] MEDS: Citalopram 20 MG Tab PO SCH (07:22)
[2017-11-14] MEDS: Memantine 10 MG Tab PO SCH (07:22)
[2017-11-14 07:36] LABS: CHLORIDE,CL 104 mmol/L (98-107); SODIUM,NA 137 mmol/L (136-145)
[2017-11-14] MEDS ORDERED: Pantoprazole 40 MG Vial IVPUSH SCH (08:00)
[2017-11-14] MEDS: Sodium Chloride 0.9% 1,000 ML IV SCH (10:23)
[2017-11-14 11:31] VITALS: BP 128/65
[2017-11-14] MEDS ORDERED: Insulin Aspart 100 Units/ML 3 ML Pen SUBCUT SCH (12:00)
[2017-11-14] MEDS ORDERED: Sodium Chloride 0.9% 1,000 ML IV SCH (13:00)
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
[2017-11-14] MEDS ORDERED: Levothyroxine 50 MCG Tab PO SCH (14:00)
[2017-11-14] MEDS ORDERED: Sodium Polystyrene Sulfonate 15 GM/60 ML Susp 60 ML Bot PO SCH (18:00)
[2017-11-15] MEDS ORDERED: Citalopram 20 MG Tab PO SCH (08:00)
== END 2017-11-14 14:27 | DRG 871 ==
LOC: LL.ED 17:15 → LL.MS 18:30 → UNDOADMIN 18:30 → LL.MS 19:28 → UNDODISIN 11-14 14:27
PROVIDERS: ADMIT Emergency Medicine; ATTEND Family Medicine
DX: K92.2 Gastrointestinal hemorrhage, unspecified (principal); A41.9 Sepsis, unspecified organism; I63.9 Cerebral infarction, unspecified; J69.0 Pneumonitis due to inhalation of food and vomit; E11.9 Type 2 diabetes mellitus without complications; Z79.4 Long term (current) use of insulin; E87.5 Hyperkalemia; F32.9 Major depressive disorder, single episode, unspecified; R06.02 Shortness of breath; J44.9 Chronic obstructive pulmonary disease, unspecified; I10 Essential (primary) hypertension; R06.03 Acute respiratory distress; I51.9 Heart disease, unspecified; I45.10 Unspecified right bundle-branch block; R74.0 Nonspecific elevation of levels of transaminase and lactic acid dehydrogenase [LDH]; Z86.73 Personal history of transient ischemic attack (TIA), and cerebral infarction without residual deficits; F03.90 Unspecified dementia, unspecified severity, without behavioral disturbance, psychotic disturbance, mood disturbance, and anxiety; K21.9 Gastro-esophageal reflux disease without esophagitis; D64.9 Anemia, unspecified; E03.9 Hypothyroidism, unspecified; M19.90 Unspecified osteoarthritis, unspecified site; Z51.5 Encounter for palliative care; Z66 Do not resuscitate; Z79.82 Long term (current) use of aspirin; Z79.899 Other long term (current) drug therapy; Z85.46 Personal history of malignant neoplasm of prostate; Z88.8 Allergy status to other drugs, medicaments and biological substances; Z87.891 Personal history of nicotine dependence; T83.018A Breakdown (mechanical) of other urinary catheter, initial encounter; Y84.6 Urinary catheterization as the cause of abnormal reaction of the patient, or of later complication, without mention of misadventure at the time of the procedure; T19.1XXA Foreign body in bladder, initial encounter
CPT/HCPCS: 36415; 51702; 71045; 80053; 81001; 82271; 82272; 82550; 82553; 83605; 83880; 84484; 85025; 87040 ×2; 94640; 96360; 96374; 96375; 99291; 99292; C9113; J2060; J2270; J2405; J7030 ×2; 51798; 72192; 76857; 80048; 82962; 83735; 85007; 85008; 85027; 86140; 87077; 93005; A9270-GY; J1815; J1815-GY; J1940; J2930; J7050; J7120; S0077